=== PATIENT | female | born 1980 | race Two or more races ===

== ENCOUNTER 2020-04-02 11:49 | Emergency (ER) | payer SELFPAY ==
[~2020-04-02] VITALS: Ht 144.8 cm; Wt 70.5 kg
[2020-04-02 12:04] VITALS: BP 125/72
== END 2020-04-02 12:56 ==
LOC: ED 12:45
DX: R56.9 Unspecified convulsions (principal); F32.9 Major depressive disorder, single episode, unspecified; Z76.0 Encounter for issue of repeat prescription
CPT/HCPCS: 99281

== ENCOUNTER 2020-05-04 15:49 | Emergency (ER) | payer SELFPAY ==
[~2020-05-04] VITALS: Ht 147.3 cm; Wt 69.0 kg
[2020-05-04] MEDS ORDERED: DEXAMETHASONE 4 MG TABLET PO ONE (16:30)
[2020-05-04] MEDS ORDERED: ALBUTEROL HFA 90 MCG/SPRAY INH ONE (16:30)
[2020-05-04] MEDS ORDERED: DEXAMETHASONE 4 MG TABLET ONE (16:32)
[2020-05-04 17:01] VITALS: BP 117/81
--- NOTE | 2020-05-04 17:01 | NUR ---
PT UPRIGHT ON GURNEY AWAKE & MORE COMFORTABLE AFTER MEDS, RESPONDS APPROP TO STAFF, NAD, COMFORT MEASURES PROVIDED, CALL LIGHT WITHIN REACH.
--- NOTE | 2020-05-04 18:02 | NUR ---
Patient given discharge instructions and Rx, they have confirmed that they understand the instructions. Patient ambulatory with steady gait.
== END 2020-05-04 17:22 | disposition home or self-care (01) ==
LOC: ED 17:21
DX: R05 Cough (principal); Z20.828 Contact with and (suspected) exposure to other viral communicable diseases; B34.9 Viral infection, unspecified; R06.02 Shortness of breath; F17.200 Nicotine dependence, unspecified, uncomplicated
CPT/HCPCS: 36415; 71045; 87635; 93005; 99285